=== PATIENT | male | born 1985 | race Caucasian/White ===

== ENCOUNTER → 2018-09-23 | Outpatient (CLI) | payer BC ==
--- NOTE | 2018-09-23 10:11 | PCVCIMAG ---
APPROVED REPORT Study performed: 09/23/2018 09:20:22 EXAM: Comprehensive 2D, Doppler, and color-flow Echocardiogram Patient Location: Echo lab Status: routine BSA: 2.06 HR: 48 bpmBP: 126/72 mmHg Rhythm: Bradycardia Other Information Study Quality: Adequate Technically limited study due to tiny rib spaces. Risk Factors: Cardiac Risk Factors: Hyperlipidemia Indications Palpitations 2D Dimensions IVSd: 8.35 (7-11mm) LVDd: 46.37 mm PWd: 8.27 (7-11mm)Ascending Ao: 32.44 (22-36mm) LVDs: 33.50 (25-40mm) Left Atrium: 35.79 (27-40mm) Aortic Root: 32.21 mm LV Single Plane 4CH: 55.35 % LV Single Plane 2CH: 53.78 % Biplane EF: 53.0 % Volumes Left Atrial Volume (Systole) Single Plane 4CH: 35.22 mLSingle Plane 2CH: 76.04 mL LA ESV Index: 27.00 mL/m2 Aortic Valve AoV Peak Reymundo.: 1.10 m/s AO Peak Gr.: 4.86 mmHgLVOT Max P.42 mmHg LVOT Max V: 0.92 m/s Mitral Valve IVRT: 83.04 ms Pulmonary Valve PV Peak Reymundo.: 0.93 m/sPV Peak Gr.: 3.45 mmHg Pulmonary Vein P Vein S: 0.29 m/s P Vein D: 0.70 m/s P Vein S/D Ratio: 0.41 Tricuspid Valve TR Peak Reymundo.: 2.36 m/s TR Peak Gr.: 22.28 mmHg Left Ventricle The left ventricle is normal size. There is normal LV segmental wall motion. There is normal left ventricular wall thickness. Left ventricular systolic function is normal. The left ventricular ejection fraction is within the normal range. LVEF is 55%. The left ventricular diastolic function is normal. Right Ventricle The right ventricle is normal size. The right ventricular systolic function is normal. Atria The left atrium size is normal. The right atrium size is normal. Aortic Valve The aortic valve is normal in structure. No aortic regurgitation is present. There is no aortic valvular stenosis. Mitral Valve The mitral valve is normal in structure. Trace mitral regurgitation. No evidence of mitral valve stenosis. Tricuspid Valve The tricuspid valve is normal in structure. Mild tricuspid regurgitation with PAP of 29 mmHg. Pulmonic Valve The pulmonary valve is normal in structure. Trace pulmonic regurgitation. Great Vessels The aortic root is normal in size. IVC is normal in size and collapses >50% with inspiration. Pericardium There is no pericardial effusion. There is no pleural effusion. <Conclusion> The left ventricle is normal size. LVEF is 55%. The aortic valve is normal in structure. The mitral valve is normal in structure. Trace mitral regurgitation. The tricuspid valve is normal in structure. Mild tricuspid regurgitation with PAP of 29 mmHg. The pulmonary valve is normal in structure. Trace pulmonic regurgitation. There is no pericardial effusion.
== END | disposition home or self-care (01) ==
LOC: PCVCIMAG 09:22
PROVIDERS: ATTEND Internal Medicine
DX: I07.1 Rheumatic tricuspid insufficiency (principal); R00.2 Palpitations; E78.5 Hyperlipidemia, unspecified
CPT/HCPCS: 93306